=== PATIENT | male | born 1950 | race Caucasian/White ===

== ENCOUNTER → 2021-01-28 09:56 | Outpatient (BNVA) | payer MEDICARE, SELFPAY | PROVIDERS: PCP Internal Medicine; Visit Provider Hospitalist | DX: J41.8 Mixed simple and mucopurulent chronic bronchitis (principal); G47.33 Obstructive sleep apnea (adult) (pediatric); R91.8 Other nonspecific abnormal finding of lung field | CPT/HCPCS: 99202 ==

== ENCOUNTER → 2021-03-18 10:49 | Outpatient (BNVA) | payer MEDICARE, SELFPAY | PROVIDERS: PCP Internal Medicine; Visit Provider Hospitalist | DX: J44.9 Chronic obstructive pulmonary disease, unspecified (principal); R91.8 Other nonspecific abnormal finding of lung field; G47.33 Obstructive sleep apnea (adult) (pediatric); Z87.891 Personal history of nicotine dependence; Z79.899 Other long term (current) drug therapy | CPT/HCPCS: 99212 ==

== ENCOUNTER 2021-08-18 00:21 | Outpatient (REF) | payer MEDICARE, SELFPAY | END 2021-08-18 00:22 | disposition home or self-care (01) | LOC: HO.MMNH1L 00:21 | PROVIDERS: Visit Provider Family Medicine | DX: Z13.89 Encounter for screening for other disorder (principal) ==

== ENCOUNTER → 2021-11-07 13:04 | Outpatient (BNVA) | payer MEDICARE, SELFPAY | PROVIDERS: PCP Internal Medicine; Visit Provider Hospitalist | DX: G47.33 Obstructive sleep apnea (adult) (pediatric) (principal); J41.8 Mixed simple and mucopurulent chronic bronchitis; R91.8 Other nonspecific abnormal finding of lung field; B37.0 Candidal stomatitis | CPT/HCPCS: 99212 ==

== ENCOUNTER → 2022-05-06 08:10 | Outpatient (BNVA) | payer MEDICARE, SELFPAY | PROVIDERS: PCP Internal Medicine; Visit Provider Hospitalist | DX: J41.8 Mixed simple and mucopurulent chronic bronchitis (principal); R91.8 Other nonspecific abnormal finding of lung field; G47.33 Obstructive sleep apnea (adult) (pediatric); Z79.899 Other long term (current) drug therapy | CPT/HCPCS: 99212 ==

== ENCOUNTER → 2023-02-05 09:06 | Outpatient (BNVA) | payer MEDICARE, SELFPAY | PROVIDERS: PCP Internal Medicine; Visit Provider Hospitalist | DX: R91.8 Other nonspecific abnormal finding of lung field (principal); J41.8 Mixed simple and mucopurulent chronic bronchitis; G47.33 Obstructive sleep apnea (adult) (pediatric) | CPT/HCPCS: 99212 ==

== ENCOUNTER 2023-05-05 08:15 | Outpatient (REF) | payer MEDICARE, SELFPAY ==
--- NOTE | ~2023-05-05 | XR_ITS ---
EXAMINATION: XR CHEST CLINICAL INFORMATION: Reason for Exam R07.9 - Chest pain, unspecified COMPARISON: None TECHNIQUE: 2 views of the chest FINDINGS: Lines and tubes: Right upper quadrant cholecystectomy clips. Increased interstitial opacities and indistinctness of the central pulmonary vasculature. No pleural effusion. No pneumothorax. Cardiac silhouette is mildly enlarged. XR/XR chest 2V IMPRESSION: 1. Increased interstitial opacities and indistinctness of the central pulmonary vasculature which may reflect mild pulmonary edema and/or atypical/viral infection. 2. Cardiac silhouette is mildly enlarged.
== END 2023-05-05 08:16 | disposition home or self-care (01) ==
LOC: HO.XRAY 08:15
PROVIDERS: PCP Internal Medicine; Visit Provider Hospitalist
DX: R91.8 Other nonspecific abnormal finding of lung field (principal); R07.9 Chest pain, unspecified; G47.33 Obstructive sleep apnea (adult) (pediatric); J44.0 Chronic obstructive pulmonary disease with (acute) lower respiratory infection
CPT/HCPCS: 71046; 99212

== ENCOUNTER → 2023-05-26 08:51 | Outpatient (BNVA) | payer MEDICARE, SELFPAY | PROVIDERS: PCP Internal Medicine; Visit Provider Nurse Practitioner Family | DX: J44.0 Chronic obstructive pulmonary disease with (acute) lower respiratory infection (principal) | CPT/HCPCS: 99212 ==

== ENCOUNTER 2023-08-31 09:01 | Outpatient (AMB) | payer MEDICARE, SELFPAY ==
[2023-08-31 09:07] VITALS: BP 128/74; PULSE 83; O2SAT 91; BMI 33.4
--- NOTE | 2023-08-31 09:07 | MHC.OFFVIS ---
Intake Vital Signs 08/31/23 09:07 Height 5 ft 8 in Weight 219 lb 12.814 oz BMI 33.4 BP 128/74 Blood Pressure Location Rt brachial Position Sitting Pulse 83 Pulse Source Pulse Oximeter Pulse Oximetry (%) 91 L Oxygen Delivery Method Room Air Intake Visit Reasons: COPD Allergies No Known Allergies Allergy (Verified 08/31/23 09:12) HPI HPI Comments History of Present Illness Details The patient a 73-year-old gentleman with a history former smoker in addition to history of heart disease and renal disease. Apparently has been having worsening shortness of breath. Is been progressively getting worse. He also has productive cough with whitish mucus causing chest congestion. He was seen by Cardiology who felt that he had a pulmonary component to his breathing. Therefore he was referred to Pulmonary. Pulmonary did pulmonary function studies demonstrating COPD. The patient also had apparently a CT scan of the chest not available to me demonstrating pulmonary nodules. He was started on inhalers of the liver very expensive. He was able to get Combivent Respimat that he uses. However, continues with the productive congested cough. Based on the chronic bronchitis component he does require inhaled cortical steroids. The patient also needs aggressive chest PT this could be provided with a nebulizer machine. Patient needs to use a machine twice a day and 2 medications will be provided for him. In the meantime will have to get a CT scan of the chest to follow up his pulmonary nodule. Patient also has daytime drowsiness. He has been told that he has sleep apnea in the past. His Kirkland score is elevated 10/24. At this point the patient is not interested in undergoing a sleep study again. He will consider in the near future. 03/18/2021 the patient is here for pulmonary follow-up visit. Overall he is feeling a little better. His cough is overall better and his shortness of breath also has improved. He initially did not use the budesonide because concerns about COVID-19 and not clear this with worsening. Ultimately in the last week or 2 he has been using the medication. Since he has been using he has been noticing some improvement. He also has the DuoNeb medication that he uses twice a day. If he does missed 1 dose he does have worsening symptoms. The nebulized therapy appears to be more effective for him. In the meantime I did review his sleep study that he had few years ago. It did demonstrate that he had mild sleep apnea. The patient did try CPAP but could not tolerated. At this point the patient is not interested in undergoing a repeat sleep study. If however the patient has any worsening symptoms he is to let me know so we can order a repeat sleep study. He also underwent a CT scan of the chest that was personally reviewed by me back in 2015 2016. It demonstrated the patient had pulmonary nodules in other interstitial changes including ground-glass opacities. The patient is reluctant to undergo a repeat study at this time. He understands that if he has any worsening disease and has not intervene done in his condition could get worse. On examination he still has some wheezing so therefore is reasonable to continue the budesonide daily. If the patient does well after several weeks in the budesonide daily we can talk about seen had deescalate to possibly budesonide 3 times a week. 11/07/2021 the patient is here for a pulmonary follow-up visit. The patient had a very eventful few months. Apparently he was diagnosed with acute renal failure and required urgent dialysis. Ultimately he developed a line infection and subsequently septic shock. The patient did require transfer to the ICU where he was intubated briefly. The patient is treated for Staph aureus bacteremia. Fortunately his kidney function did improve and he was able to stop the dialysis. The patient is now recuperating with a near normal creatinine. He still monitor very closely. With all the antibiotics and inhaled steroids the patient did develop significant irritation of the mouth. He has noticed that his mouth is very irritated and red. He is concerned he is developing a fungal infection. Indeed she does have significant oral candidiasis. The patient states the DuoNeb in the budesonide have been very effective for him. He does have a Flovent inhaler that he can use while he recovers. He feels that the budesonide is much more effective in conjunction with the DuoNeb and would like to pursue continue that if possible. I did tell him that once he is better he is to go back on the budesonide. If however the patient notices recurrence of the candidiasis then we can switch him down to the lower dose of 0.25 mg b.i.d. 05/06/2022 the patient is here for a pulmonary follow-up visit. Overall he is doing well from a respiratory status put although he stop using the BiPAP. He has a hard time tolerating it. He does not sleep well either. He has been noticing decreased urine output so he stopped using his Bumex now for about a week. He has not been using the metabolite neither. He has noticed increased weight gain. His weight increasing to 104-209 in 24 hours. The patient has noticed increased swelling as well. He did restart Bumex. The patient also had blood work this week. His BNP is elevated. His kidney functions about the same. He does have a follow-up with his kidney doctor soon. I am concerned about the fact that he is not using the noninvasive therapy. The patient does have COPD. I have get an overnight oximetry to see if he has any evidence of hypoxia. The patient is a little reluctant to use oxygen at this time. He continues with the nebulized therapy. Denies any further thrush. He is tolerating the medicine well. 02/05/2023 the patient is here for a pulmonary follow-up visit. He continues to struggle with his breathing. Has had chest congestion and chest tightness and wheezing. Has needed additional prednisone since we last spoke. He continues use the budesonide in appears to be working. He does not like the DuoNeb. It is irritating him. Therefore I will stop the DuoNeb and switch him over to regular albuterol. The patient does have some rhonchi and wheezing on examination. Due to his chronic bronchitis I do believe he is a good candidate for Daliresp. We did talk about the adverse effects. I am hopeful that he can tolerated. The other option is use azithromycin 3 times a week although he is already on prophylactic antibiotics for his issue with bladder. The patient has not had an x-ray in some time. Therefore he will have an x-ray soon. 05/05/2023 The patient is here for a pulmonary follow-up visit. He has had worsening respiratory symptoms. Significant chest tightness and wheezing. Moderate severity. He did feel better on the prednisone. Once he finished the prednisone the symptoms return. He did not tolerate the Daliresp. Also starts complaining of left-sided chest discomfort. Mild in severity. Some pleuritic component. 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 I did recommend he go for blood work including a troponin that the patient was reluctant at this time. Will go ahead and treat him with prednisone and antibiotics. If the patient's symptoms do not improve or if they worsen he needs to go to the ER. On examination he does have asymmetrical wheezing so therefore have him get a chest x-ray to see if there is any obstruction of the airways or airspace disease. Ultimately he may a CT scan to better address issue. He recently had a lost his son and he has morning at this time. The patient does have to go to a in a week or so. Will give him enough medicines for him to be able to have get to the back in the him come back for follow-up visit in a couple weeks. 08/31/2023 this is a hospital follow-up visit. The patient recently was at [facility] with respiratory failure. The patient was evaluated by Cardiology and also Pulmonary. There he did undergo an echocardiogram demonstrating a decreased ejection fraction of 30%. Also has severe pulmonary hypertension. Because of unclear early of his underlying pulmonary hypertension he did undergo right heart catheterization. Demonstrated that his PA pressures were severe and also that his wedge pressure was elevated. Therefore, he does have some component of left-sided heart failure leading to his pulmonary hypertension in addition to his underlying pulmonary disease. He also had a CT scan of the chest at [facility] which I personally review the family and the patient demonstrating evidence of reticular changes due to pulmonary fibrosis. He also has mosaic pattern likely from underlying air trapping and could be secondary to small airways disease. The budesonide seems to help with that. He does take it twice a day via nebulizer. He also is on oxygen now continue sleep. We did taken for 6 minute walk test for a his POC titration study feet in conserving device trial. He did tolerated well. At rest he was 87% on room air and he was placed on 2 L pulsing seems to doing well and then with activity he needed up to 3 L pulse to maintain a pulse ox of 92%. Therefore I will send a prescription to his [employer] company, [place] in order for him to get a conserving device. In addition to the be cylinders will also request a portable oxygen concentrator to provide him better portability outside of the home travel. [facility] Medical History (Updated 08/31/23 @ 20:47 by Inder Martínez MD) ILD (interstitial lung disease) CHF (congestive heart failure) Pulmonary hypertension Chest pain Oral thrush Pulmonary nodules DARYL (obstructive sleep apnea) COPD (chronic obstructive pulmonary disease) Social History Patient Tobacco Use Status: Former Tobacco user Tobacco use type: Cigarette Years Smoked: 35 years Review of Systems Const Denies night sweats ENT Denies change in voice, Denies lip swelling, Denies mouth pain, Reports nasal congestion and Reports nasal discharge Card Reports chest pain, Reports dyspnea and Reports dyspnea on exertion Resp Reports chest congestion, Reports cough, Reports dyspnea, Reports dyspnea on exertion and Reports wheezing GI Denies abdominal pain Musc Denies no additional complaints Neuro Denies Neuro-related abnormal movements Psych Denies no additional complaints Alejandro/Lymph Denies easy bleeding and Denies lymphadenopathy Aller/Immun Denies lip swelling and Reports wheezing Physical Exam Vital Signs: Last Vital Signs Pulse 83 08/31/23 09:07 BP 128/74 08/31/23 09:07 Pulse Ox 91 L 08/31/23 09:07 Oxygen Delivery Method Room Air 08/31/23 09:07 BMI result Body Mass Index 33.4 Const General: alert Neck Neck: Yes normal visual inspection, Yes full ROM and Yes no lymphadenopathy Chest Chest palpation & inspection: normal inspection of the chest Resp Effort & Inspection: normal respiratory effort Auscultation: no rhonchi, no wheezes and diminished lung sounds Cardio Rate: regular rate Rhythm: regular rhythm Heart sounds: S1 normal heart sound present and S2 normal heart sound present GI Palpation (GI): Soft to palpation and nontender Auscultation: normal bowel sounds Skin General skin exam: rashes and/or lesions noted Office Procedures 6 Minute Walk Time:: 20:43 SPO2 % at rest: 87 Pulse at rest: 89 Distance in yards walked: 200 Marine Score: 5 Supplemental Oxygen: desaturated on RA at rest pox 87%, placed on 2l/pulse and kept pox 92%, then ambulated and increased to 3L/pulse to keep pox 92% [id number] - 6 Minute Walk Assessment & Plan Assessment & Plan (1) Pulmonary nodules: Code(s): R91.8 - Other nonspecific abnormal finding of lung field (2) DARYL (obstructive sleep apnea): Comment: Not on BIPAP Code(s): G47.33 - Obstructive sleep apnea (adult) (pediatric) (3) COPD (chronic obstructive pulmonary disease): Code(s): J44.9 - Chronic obstructive pulmonary disease, unspecified Qualifiers: COPD type: COPD with acute lower respiratory infection Qualified Code(s): J44.0 - Chronic obstructive pulmonary disease with (acute) lower respiratory infection (4) Pulmonary hypertension: Code(s): I27.20 - Pulmonary hypertension, unspecified Plan: s/p RHC with elevated wedge 16. Likely Group 2/3. Not a candidate for now for vasodilator with decreased EF could result in flash pulmonary edema (5) CHF (congestive heart failure): Code(s): I50.9 - Heart failure, unspecified Qualifiers: Heart failure type: systolic (6) ILD (interstitial lung disease): Code(s): J84.9 - Interstitial pulmonary disease, unspecified Plan continue budesonide BID Albuterol nebs 2-4 times a day diuresis as tolerated No vasodilators at this time request POC and B cylinders with conserving valve 2-3L/pulse and 2L/min at night while sleeping F/U in 6-8 weeks Coding Level of Care Code Est Pt Level 5 (20184) Diagnoses Pulmonary nodules R91.8 DARYL (obstructive sleep apnea) G47.33 Chronic obstructive pulmonary disease with acute lower respiratory infection J44.0 COPD type: COPD with acute lower respiratory infection Pulmonary hypertension I27.20 CHF (congestive heart failure) I50.9 Heart failure type: systolic ILD (interstitial lung disease) J84.9 CPT Codes Coding ([id number]) Time Spent (min) 45
[2023-08-31 20:44] VITALS: PULSE 89; O2SAT 87
== END 2023-08-31 09:59 | disposition home or self-care (01) ==
PROVIDERS: PCP Internal Medicine; Visit Provider Hospitalist
DX: R91.8 Other nonspecific abnormal finding of lung field (principal); G47.33 Obstructive sleep apnea (adult) (pediatric); I27.20 Pulmonary hypertension, unspecified; J44.0 Chronic obstructive pulmonary disease with (acute) lower respiratory infection; I50.9 Heart failure, unspecified; J84.9 Interstitial pulmonary disease, unspecified
CPT/HCPCS: 94618; 99215

== ENCOUNTER → 2023-08-31 09:01 | Outpatient (BNVA) | payer MEDICARE, SELFPAY | PROVIDERS: PCP Internal Medicine; Visit Provider Hospitalist | DX: J44.0 Chronic obstructive pulmonary disease with (acute) lower respiratory infection (principal); R91.8 Other nonspecific abnormal finding of lung field; G47.33 Obstructive sleep apnea (adult) (pediatric); I27.20 Pulmonary hypertension, unspecified; I50.9 Heart failure, unspecified; J84.9 Interstitial pulmonary disease, unspecified | CPT/HCPCS: 94618; 99212 ==

== ENCOUNTER 2023-11-03 09:10 | Outpatient (AMB) | payer MEDICARE, SELFPAY ==
[2023-11-03 09:10] VITALS: BMI 30.1
--- NOTE | 2023-11-03 09:10 | A.OFFVIS_ITS ---
Intake Vital Signs 11/03/23 09:10 Height 5 ft 8 in Weight 198 lb BMI 30.1 Intake Visit Reasons: COPD Chop Saw Operator Required: No Allergies No Known Allergies Allergy (Verified 11/03/23 09:11) HPI HPI Comments History of Present Illness Details The patient a 73-year-old gentleman with a history former smoker in addition to history of heart disease and renal disease. Apparently has been having worsening shortness of breath. Is been progressively getting worse. He also has productive cough with whitish mucus causing chest congestion. He was seen by Cardiology who felt that he had a pulmonary component to his breathing. Therefore he was referred to Pulmonary. Pulmonary did pulmonary function studies demonstrating COPD. The patient also had apparently a CT scan of the chest not available to me demonstrating pulmonary nodules. He was started on inhalers of the liver very expensive. He was able to get Combivent Respimat that he uses. However, continues with the productive congested cough. Based on the chronic bronchitis component he does require inhaled cortical steroids. The patient also needs aggressive chest PT this could be provided with a nebulizer machine. Patient needs to use a machine twice a day and 2 medications will be provided for him. In the meantime will have to get a CT scan of the chest to follow up his pulmonary nodule. Patient also has daytime drowsiness. He has been told that he has sleep apnea in the past. His Holbrook score is elevated 10/24. At this point the patient is not interested in undergoing a sleep study again. He will consider in the near future. 02/05/2023 the patient is here for a pulm onary follow-up visit. He continues to struggle with his breathing. Has had chest congestion and chest tightness and wheezing. Has needed additional prednisone since we last spoke. He continues use the budesonide in appears to be working. He does not like the DuoNeb. It is irritating him. Therefore I will stop the DuoNeb and switch him over to regular albuterol. The patient does have some rhonchi and wheezing on examination. Due to his chronic bronchitis I do believe he is a good candidate for Daliresp. We did talk about the adverse effects. I am hopeful that he can tolerated. The other option is use azithromycin 3 times a week although he is already on prophylactic antibiotics for his issue with bladder. The patient has not had an x-ray in some time. Therefore he will have an x-ray soon. 05/05/2023 The patient is here for a pulm onary follow-up visit. He has had worsening respiratory symptoms. Significant chest tightness and wheezing. Moderate severity. He did feel better on the prednisone. Once he finished the prednisone the symptoms return. He did not tolerate the Daliresp. Also starts complaining of left-sided chest discomfort. Mild in severity. Some pleuritic component. 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 I did recommend he go for blood work including a troponin that the patient was reluctant at this time. Will go ahead and treat him with prednisone and antibiotics. If the patient's symptoms do not improve or if they worsen he needs to go to the ER. On examination he does have asymmetrical wheezing so therefore have him get a chest x-ray to see if there is any obstruction of the airways or airspace disease. Ultimately he may a CT scan to better address issue. He recently had a lost his son and he has morning at this time. The patient does have to go to a in a week or so. Will give him enough medicines for him to be able to have get to the back in the him come back for follow-up visit in a couple weeks. 08/31/2023 this is a hospital follow-up visit. The patient recently was at [facility] with respiratory failure. The patient was evaluated by Cardiology and also Pulmonary. There he did undergo an echocardiogram demonstra ting a decreased ejection fraction of 30%. Also has severe pulmonary hypertension. Because of unclear early of his underlying pulmonary hypertension he did undergo right heart catheterization. Demonstrated that his PA pressures were severe and also that his wedge pressure was elevated. Therefore, he does have some component of left-sided heart failure leading to his pulmonary hypertension in addition to his underlying pulmonary disease. He also had a CT scan of the chest at [facility] which I personally review the family and the patient demonstrating evidence of reticular changes due to pulmonary fibrosis. He also has mosaic pattern likely from underlying air trapping and could be secondary to small airways disease. The budesonide seems to help with that. He does take it twice a day via nebulizer. He also is on oxygen now continue sleep. We did taken for 6 minute walk test for a his POC titration study feet in conserving device trial. He did tolerated well. At rest he was 87% on room air and he was placed on 2 L pulsing seems to doing well and then with activity he needed up to 3 L pulse to maintain a pulse ox of 92%. Therefore I will send a prescription to his DME company, [place] in order for him to get a conserving device. In addition to the be cylinders will also request a portable oxygen concentrator to provide him better portability outside of the home travel. 11/03/2023 the patient has a telehealth visit today. Apparently he was not hospital with worsening respiratory symptoms and heart failure. He was discharged home and currently on palliative care. He is having hard time with breathing and also significant coughing. He has been using the nebulizer. Also been using the oxygen. He has been having to increase the oxygen a little bit because of the shortness of breath. I did encourage him to do so in to check his oxygen to make sure that he keeps around 92%. The patient states that he is contemplating going to hospice care. She will be talking to the [facility] nurses today about it. In the meantime a sense of cough syrup with codeine to help him with the cough to improve his quality of life. [facility] Medical History (Updated 11/03/23 @ 18:08 by Inder Martínez MD) ILD (interstitial lung disease) CHF (congestive heart failure) Pulmonary hypertension Chest pain Oral thrush Pulmonary nodules DARYL (obstructive sleep apnea) COPD (chronic obstructive pulmonary disease) Social History Patient Tobacco Use Status: Former Tobacco user Tobacco use type: Cigarette Years Smoked: 35 years Review of Systems Const Denies night sweats ENT Denies change in voice, Denies lip swelling, Denies mouth pain, Reports nasal congestion and Reports nasal discharge Card Reports chest pain, Reports dyspnea and Reports dyspnea on exertion Resp Reports chest congestion, Reports cough, Reports dyspnea, Reports dyspnea on exertion and Reports wheezing GI Denies abdominal pain Musc Denies no additional complaints Neuro Denies Neuro-related abnormal movements Psych Denies no additional complaints Alejandro/Lymph Denies easy bleeding and Denies lymphadenopathy Aller/Immun Denies lip swelling and Reports wheezing Physical Exam Vital Signs: BMI result Body Mass Index 30.1 Const General: cooperative and comfortable Orientation/consciousness: patient oriented x3 Resp Effort & Inspection: able to speak in complete sentences Neuro General: patient oriented x3 Assessment & Plan Assessment & Plan (1) Pulmonary nodules: Code(s): R91.8 - Other nonspecific abnormal finding of lung field (2) DARYL (obstructive sleep apnea): Comment: Not on BIPAP Code(s): G47.33 - Obstructive sleep apnea (adult) (pediatric) (3) COPD (chronic obstructive pulmonary disease): Code(s): J44.9 - Chronic obstructive pulmonary disease, unspecified Qualifiers: COPD type: COPD with acute lower respiratory infection Qualified Code(s): J44.0 - Chronic obstructive pulmonary disease with (acute) lower respiratory infection (4) Pulmonary hypertension: Code(s): I27.20 - Pulmonary hypertension, unspecified Plan: s/p RHC with elevated wedge 16. Likely Group 2/3. Not a candidate for now for vasodilator with decreased EF could result in flash pulmonary edema (5) CHF (congestive heart failure): Code(s): I50.9 - Heart failure, unspecified Qualifiers: Heart failure type: systolic Heart failure chronicity: chronic Qualified Code(s): I50.22 - Chronic systolic (congestive) heart failure (6) ILD (interstitial lung disease): Code(s): J84.9 - Interstitial pulmonary disease, unspecified Plan continue budesonide BID Albuterol nebs 2-4 times a day ventolin as needed diuresis as tolerated No vasodilators at this time Oxygen 2-3L to keep pox>90% F/U in 6-8 months Medications: New albuterol sulfate 90 mcg/actuation (Ventolin HFA) 2 puffs inhalation QID 30 days PRN 18 grams 11RF shortness of breath or wheezing albuterol sulfate 90 mcg/actuation (Ventolin HFA) 2 puffs inhalation QID 30 days PRN 18 grams 11RF shortness of breath or wheezing Changed From codeine-guaifenesin 10-100 mg/5 mL 5 mL PO Q6H 10 days PRN 150 mL 0RF cough To codeine-guaifenesin 10-100 mg/5 mL 10 mL PO Q6H 10 days PRN 300 mL 0RF cough Telehealth Telehealth Location of provider rendering services: practice address Location of patient: address on file Patient Identification confirmed using: Name, : Yes Telehealth method: voice only Patient verbally consented to treatment: Yes Patient verbally consented to billing insurance company: Yes Patient informed of any privacy concerns related to visit: Yes Coding Level of Care Code Tele Est Pt Level 4 (60127) Diagnoses Pulmonary nodules R91.8 DARYL (obstructive sleep apnea) G47.33 Chronic obstructive pulmonary disease with acute lower respiratory infection J44.0 COPD type: COPD with acute lower respiratory infection Pulmonary hypertension I27.20 Chronic systolic congestive heart failure I50.22 Heart failure type: systolic Heart failure chronicity: chronic ILD (interstitial lung disease) J84.9 Time Spent (min) 15
== END 2023-11-03 09:41 | disposition home or self-care (01) ==
LOC: HO.HPS 09:10
PROVIDERS: PCP Internal Medicine; Visit Provider Hospitalist
DX: R91.8 Other nonspecific abnormal finding of lung field (principal); G47.33 Obstructive sleep apnea (adult) (pediatric); J44.0 Chronic obstructive pulmonary disease with (acute) lower respiratory infection; I27.20 Pulmonary hypertension, unspecified; I50.22 Chronic systolic (congestive) heart failure; J84.9 Interstitial pulmonary disease, unspecified
CPT/HCPCS: 99442

== ENCOUNTER → 2023-11-03 09:10 | Outpatient (BNVA) | payer MEDICARE, SELFPAY | PROVIDERS: PCP Internal Medicine; Visit Provider Hospitalist ==